=== PATIENT | male | born 1955 | race Caucasian/White ===

== ENCOUNTER 2021-06-04 11:58 | Emergency (ER) | payer MEDICARE, MEDICAID ==
[~2021-06-04] VITALS: Ht 175.3 cm; Wt 81.0 kg
[2021-06-04] MEDS ORDERED: HYDROCODONE/ACETAMINOPHEN 5/325MG TABLET PO ONE (13:45)
[2021-06-04] MEDS ORDERED: KETOROLAC 60MG/2ML VIAL IM ONE (13:45)
[2021-06-04] MEDS ORDERED: CYCL25PO15 MT (14:58)
[2021-06-04] MEDS ORDERED: HYDR-4001 MT (14:58)
[2021-06-04 15:24] VITALS: BP 148/88
== END 2021-06-04 15:25 | disposition home or self-care (01) ==
LOC: ER 12:27
DX: G89.29 Other chronic pain (principal); M54.50 Low back pain, unspecified; I10 Essential (primary) hypertension; Z76.0 Encounter for issue of repeat prescription
CPT/HCPCS: 96372; 99283; J1885

== ENCOUNTER 2021-06-11 16:13 | Emergency (ER) | payer MEDICARE, MEDICAID ==
[~2021-06-11] VITALS: Ht 177.8 cm; Wt 100.0 kg
[~2021-06-11 16:13] MED LIST: CYCL25PO15 MT; HYDR-4001 MT
[2021-06-11] MEDS ORDERED: ACETAMINOPHEN 325MG TABLET PO STA (16:45)
[2021-06-11] MEDS ORDERED: ONDANSETRON HCL 4MG/2ML INJ IV STA (16:45)
[2021-06-11] MEDS ORDERED: MORPHINE SULFATE 4 MG/ML CPJ (NOT FOR IM USE) IV STA (16:45)
[2021-06-11 17:42] LABS: CHLORIDE 113 mEq/L (98-107)
[2021-06-11 17:45] LABS: BASOPHILS % 0.6 % (0.0-2.0); EOSINOPHILS % 8.6 % (0.0-5.0); ETHANOL BLOOD < 10 mg/dL; HEMATOCRIT. 43.9 % (42.0-52.0); HEMOGLOBIN. 14.3 g/dL (14.0-18.0); LYMPHOCYTES % 15.6 % (20.0-50.0); MEAN CORPUSCULAR HEMOGLOBIN 29.1 pg (28.0-32.0); MEAN CORPUSCULAR VOLUME 89.1 fL (80.0-94.0); MEAN PLATELET VOLUME 8.2 fl (7.4-10.4); MONOCYTES % 7.2 % (2.0-8.0); PLATELET 304 x1000/uL (130-400); RED BLOOD CELL COUNT 4.92 mill/uL (4.7-6.1); RED CELL DISTRIBUTION WIDTH 14.1 % (11.6-14.6)
[2021-06-11 19:06] LABS: CLARITY URINE CLEAR (CLEAR); COLOR URINE YELLOW (YELLOW); KETONES URINE NEGATIVE (NEGATIVE); LEUKOCYTE ESTERASE URINE NEGATIVE (NEGATIVE); NITRITE URINE NEGATIVE (NEGATIVE); OCCULT BLOOD URINE NEGATIVE (NEGATIVE); PROTEIN URINE NEGATIVE (NEGATIVE); SPECIFIC GRAVITY URINE 1.022 (1.005-1.030)
[2021-06-11 19:30] LABS: METHADONE URINE SCREEN NEGATIVE (NEGATIVE); OPIATES URINE SCREEN NEGATIVE (NEGATIVE)
[2021-06-11 19:31] LABS: *AMPHETAMINES SCREEN URINE NEGATIVE (NEGATIVE); *BARBITURATES SCREEN URINE NEGATIVE (NEGATIVE); *BENZODIAZEPINES SCREEN URINE NEGATIVE (NEGATIVE); *COCAINE SCREEN URINE NEGATIVE (NEGATIVE); CANNABINOID URINE SCREEN PRESUMTIVE POSITIVE (NEGATIVE); PHENCYCLIDINE URINE SCREEN NEGATIVE (NEGATIVE)
[2021-06-12] MEDS: IBUPROFEN 600MG TABLET PO NR ×2 (00:49→03:45)
[2021-06-12] MEDS: GABAPENTIN 300MG CAPSULE PO SCH ×2 (14:17)
[2021-06-12] MEDS ORDERED: NICOTINE 7MG PATCH TD ONE (14:30)
[2021-06-12] MEDS ORDERED: ACETAMINOPHEN 325MG TABLET PO ONE (14:30)
[2021-06-12] MEDS ORDERED: ARIPIPRAZOLE 5MG TABLET PO ONE (21:00)
[2021-06-13] MEDS ORDERED: ACETAMINOPHEN 325MG TABLET PO ONE ×2 (05:30→17:00)
[2021-06-13] MEDS: GABAPENTIN 300MG CAPSULE PO SCH (06:00)
[2021-06-13] MEDS ORDERED: LORAZEPAM 1MG TABLET PO ONE (08:45)
[2021-06-13] MEDS ORDERED: ACETAMINOPHEN 325MG TABLET PO NR (09:45)
[2021-06-13] MEDS: DULOXETINE HCL 30MG DR CAPSULE PO SCH ×2 (11:02)
[2021-06-13] MEDS: GABAPENTIN 400MG CAPSULE PO SCH ×2 (15:45→23:30)
[2021-06-13] MEDS ORDERED: IBUPROFEN 600MG TABLET PO ONE (16:00)
[2021-06-13] MEDS ORDERED: HYDROCODONE/ACETAMINOPHEN 5/325MG TABLET PO ONE (16:45)
[2021-06-13] MEDS ORDERED: ARIPIPRAZOLE 5MG TABLET PO SCH (21:00)
[2021-06-13] MEDS ORDERED: DIAZEPAM 5 MG TABLET PO SCH (21:00)
[2021-06-14] VITALS: BP 144/86
== END 2021-06-14 00:20 ==
LOC: ER 16:13
DX: R45.851 Suicidal ideations (principal); G89.29 Other chronic pain; M54.9 Dorsalgia, unspecified; Z20.822 Contact with and (suspected) exposure to COVID-19; Z59.00 Homelessness unspecified
CPT/HCPCS: 36415; 72131; 80053; 80305; 80307; 80320; 80329; 81003; 85025; 87426; 96374; 96375; 99285; J2270; J2405; G0480